=== PATIENT | female | born 1985 | race African-American/Black ===

== ENCOUNTER 2017-04-04 15:42 | Emergency (ER) | payer OTHER | END 2017-04-04 17:10 | disposition home or self-care (01) | LOC: E/R 15:42 | DX: J06.9 Acute upper respiratory infection, unspecified (principal) | CPT/HCPCS: 99284; Z7502 ==

== ENCOUNTER 2017-04-09 19:55 | Emergency (ER) | payer OTHER | END 2017-04-09 20:33 | disposition home or self-care (01) | LOC: E/R 20:33 | DX: J06.9 Acute upper respiratory infection, unspecified (principal) | CPT/HCPCS: 99284; Z7502 ==